=== PATIENT | female | born 1980 | race Caucasian/White ===

== ENCOUNTER 2017-11-08 13:52 | Emergency (ER) | END 2017-11-08 17:05 | disposition home or self-care (01) ==

== ENCOUNTER 2017-12-07 14:38 | Emergency (ER) | END 2017-12-07 17:15 | disposition home or self-care (01) ==

== ENCOUNTER 2018-06-12 11:29 | Emergency (ER) | payer MEDICAID ==
[~2018-06-12] VITALS: Ht 170.2 cm; Wt 111.4 kg
[~2018-06-12 11:29] MED LIST: CIPR500T4 PO; DIPH-232 PO; DOXY100T20 PO; HC30CR25 TOP; HYDR-4011 PO; LABE200T43 PO; LORA10CA PO; METO10TA92 PO; NIFE30TA66 PO
[2018-06-12 11:34] VITALS: Ht 170.2 cm; Wt 111.4 kg
[2018-06-12] MEDS ORDERED: LOSA100T8 PO ×2 (12:08→15:44)
--- NOTE | 2018-06-12 13:10 | ERD ---
ER Documentation Chief Complaint Chief Complaint dizziness x1hr, non complaint w/HTN HPI 38-year-old female history of hypertension but poorly compliant with medications presents the ED complaining of awakening this morning with dizziness. Patient reports turning her head after awakening and experiencing acute onset of dizziness with nausea but no vomiting. Denies headache, visual changes, focal weakness or numbness. No neck or back pain. Denies chest pain, palpitations or shortness of breath. No abdominal pain, dysuria, polyuria or flank pain. No leg pain or swelling. No fevers or chills. ROS All systems reviewed and are negative except as per history of present illness. Medications Home Meds Active Scripts Amlodipine Besylate* (Amlodipine Besylate*) 2.5 Mg Tablet, 5 MG PO DAILY, #30 TAB Prov:RUBEN SKY MD 06/12/18 Meclizine Hcl* (Antivert*) 12.5 Mg Tab, 25 MG PO Q8 PRN for DIZZINESS, #12 TAB Prov:RUBEN SKY MD 06/12/18 Losartan Potassium* (Losartan Potassium*) 100 Mg Tablet, 100 MG PO DAILY, #30 TAB Prov:RUBEN SKY MD 06/12/18 Reported Medications Losartan Potassium* (Losartan Potassium*) 100 Mg Tablet, 100 MG PO DAILY, TAB PATIENT STOP TAKING 4 MONTHS AGO, BUT ONLY TODAY SHE TAKE ONE PILL. 06/12/18 Discontinued Scripts Doxycycline Hyclate* (Doxycycline Hyclate*) 100 Mg Tablet.dr, 100 MG PO BID for 7 Days, TAB Prov:DINA ARITA PA-C 12/07/17 Hydrocortisone* Topical (Hydrocortisone* Topical) 2.5%-28.3 Gm Cream..g., 1 APPLIC TOP BID, #1 TUB Prov:DINA ARITA PA-C 12/07/17 Loratadine* (Claritin*) 10 Mg Capsule, 10 MG PO DAILY, #20 CAP Prov:DINA ARITA PA-C 12/07/17 Metoclopramide* (Reglan*) 10 Mg Tablet, 10 MG PO Q6 PRN for NAUSEA AND/OR VOMIT ING, #10 TAB Prov:TRICIA SKY 11/08/17 Hydrocodone/Acetaminophen ([place] 5-325 Tablet) 1 Each Tablet, 1 TAB PO Q6H PRN for PAIN, #20 TAB Prov:TRICIA SKY 11/08/17 Ciprofloxacin Hcl* (Ciprofloxacin Hcl*) 500 Mg Tablet, 500 MG PO BID for 7 Days, TAB Prov:CAMELIA VILLARREAL 05/25/14 Diphenoxylate Hcl-Atropine (Lomotil) 1 Tab Tablet, 1 TAB PO QID PRN for DIARRHEA, #30 TAB Prov:CAMELIA VILLARREAL 05/25/14 Nifedipine* (Procardia XL*) 30 Mg Tabsr, 30 MG PO BID, #60 2 Refills Prov:CAMELIA VILLARREAL 05/25/14 Labetalol Hcl* (Normodyne*) 200 Mg Tab, 200 MG PO BID, #60 TAB 2 Refills Prov:CAMELIA VILLARREAL 05/25/14 Allergies Allergies: Coded Allergies: ondansetron (Unverified Allergy, Intermediate, FACIAL RASHES, 06/12/18) RE-ENTERED UNCODED ALLERGY CODED PMhx/Soc History of Surgery: Yes (c section) Anesthesia Reaction: No Hx Neurological Disorder: No Hx Respiratory Disorders: No Hx Cardiac Disorders: Yes (high cholesterol) Hx Psychiatric Problems: No Hx Miscellaneous Medical Probl: No Hx Alcohol Use: No Hx Substance Use: No Hx Tobacco Use: No Smoking Status: Never smoker FmHx No sudden cardiac , stroke or subarachnoid hemorrhage Physical Exam Vitals Vital Signs Date Temp Pulse Resp B/P (MAP) Pulse Ox O2 O2 Flow FiO2 Time Delivery Rate 06/12/18 98.9 89 18 161/93 100 Room Air 16:18 (115) 06/12/18 78 18 158/95 100 Room Air 15:00 (116) 06/12/18 92 18 169/98 100 Room Air 12:47 (121) 06/12/18 99.9 109 22 206/97 98 11:34 (133) Physical Exam Const: No acute distress Head: Atraumatic Eyes: Normal Conjunctiva ENT: Normal External Ears, Nose and Mouth. Neck: Full range of motion. Carotids 2+ bilaterally without bruits. Resp: Clear to auscultation bilaterally Cardio: Regular rate and rhythm, no murmurs Abd: Soft, obese, non tender, non distended. Normal bowel sounds Skin: No petechiae or rashes Back: No midline or flank tenderness Ext: No cyanosis, or edema. No calf swelling or tenderness. Neur: Awake and alert Psych: Normal Mood and Affect Result Diagram: 06/12/18 1323 06/12/18 1323 Results 24 hrs Laboratory Tests Test 06/12/18 12:44 06/12/18 13:23 POC Beta HCG, Qualitative NEGATIVE White Blood Count 5.1 10^3/ul Red Blood Count 5.26 10^6/ul Hemoglobin 15.4 g/dl Hematocrit 45.1 % Mean Corpuscular Volume 85.7 fl Mean Corpuscular Hemoglobin 29.3 pg Mean Corpuscular Hemoglobin Concent 34.1 g/dl Red Cell Distribution Width 12.7 % Platelet Count 279 10^3/UL Mean Platelet Volume 9.9 fl Immature Granulocytes % 0.400 % Neutrophils % 76.4 % Lymphocytes % 15.4 % Monocytes % 6.8 % Eosinophils % 0.4 % Basophils % 0.6 % Nucleated Red Blood Cells % 0.0 /100WBC Immature Granulocytes # 0.020 10^3/ul Neutrophils # 3.9 10^3/ul Lymphocytes # 0.8 10^3/ul Monocytes # 0.4 10^3/ul Eosinophils # 0.0 10^3/ul Basophils # 0.0 10^3/ul Nucleated Red Blood Cells # 0.0 10^3/ul Sodium Level 141 mmol/L Potassium Level 3.8 mmol/L Chloride Level 108 mmol/L Carbon Dioxide Level 29 mmol/L Anion Gap 4 Blood Urea Nitrogen 10 mg/dl Creatinine 0.55 mg/dl Est Glomerular Filtrat Rate mL/min > 60 mL/min Glucose Level 122 mg/dl Calcium Level 9.5 mg/dl Troponin I < 0.012 ng/ml Current Medications Medications Dose Sig/Maliha Start Time Status Last (Trade) Ordered Route PRN Stop Time Admin Dose Reason Admin Meclizine 25 mg ONCE ONCE 06/12/18 DC 06/12/18 HCl PO 13:30 06/12/18 13:32 (Antivert) 13:31 Procedures/MDM DOCUMENTS REVIEWED: ED nurse, prior records LAB INTERPRETATION: CBC negative for anemia, leukocytosis or thrombocytopenia. Chemistry reveals no evidence of renal insufficiency, electrolyte abnormalities or hyperglycemia. EKG: Time: 1316. Sinus tachycardia. Ventricular rate 101. Normal ME and QRS. No acute ST segment elevation or depression. Normal axis. No ectopy. My Interpretation IMAGING: PROCEDURE: CT Head without contrast. CLINICAL INDICATION: Dizziness and hypertension TECHNIQUE: The study was performed utilizing a GE 64-slice multidetector CT scanner. Direct spiral axial CT images of the brain were obtained from the vertex to the skull base without contrast. Coronal and sagittal reformat images are provided. The CTDI vol is 39.1 mGy and the DLP is 634.23 mGy-cm. The images were reviewed on a PACS workstation. DICOM images are available. One or more of the following dose reduction techniques were used: Automated exposure control. Adjustment of the mA and/or kV according to patient size. Use of iterative reconstruction technique. COMPARISON: No prior studies are available for comparison. FINDINGS: The ventricles and cortical sulci are within normal limits. The dean-white matter differentiation is maintained. No intra or extra-axial fluid collection or mass effect or shift in the midline structures is seen. The visualized paranasal sinuses, mastoid air cells, orbits, and calvarium are unremarkable. IMPRESSION: No acute intracranial pathology. RPTAT: HPNM Physician Carmen Date Time Electronically viewed and signed by Physician Carmen on 06/12/2018 13:33 / REEXAMINATION/REEVALUATION: Time: 14:48. Improved. Dizziness almost completely resolved. MEDICAL DECISION MAKIN-year-old female history of hypertension but poorly compliant with medications presents the ED complaining of awakening this morning with dizziness. Poorly controlled hypertension without evidence of hypertensive urgency or emergency. CT of the brain to evaluate for hemorrhage, infarct, mass and hydrocephalus is unremarkable. Presentation consistent with peripheral vertigo likely benign positional vertigo although labyrinthitis or Mnire's disease are considered. Patient's neurologic symptoms have stabilized while they have been evaluated in the department and are appropriate for outpatient work up. No evidence of meningitis, intracranial bleed, seizure, stroke, or elevated intracranial pressure stable for discharge with precautionary instructions and outpatient follow-up as counseled. Though the patient's latest blood pressure was elevated (>120/80), the patient has a known history of hypertension and urged to pursue adjustment of their medical therapy within a week with their primary care physician. Please refer to the medication reconciliation form for the current list of hypertensive me dications. Counseled patient and family regarding diagnostic workup, diagnosis and need for followup. Understands to return to ED if symptoms recur, worsen or any other concerns. Departure Diagnosis: Primary Impression: Dizziness Additional Impressions: Peripheral vertigo Laterality: unspecified laterality Qualified Codes: H81.399 - Other peripheral vertigo, unspecified ear Poorly-controlled hypertension Noncompliance with medication regimen Condition: Stable (Improved) RUBEN SKY MD Jun 12, 2018 13:10
[2018-06-12] MEDS ORDERED: MECLIZINE 12.5 MG TAB PO ONE (13:30)
[2018-06-12] MEDS ORDERED: MECL12.574 PO (15:44)
[2018-06-12] MEDS ORDERED: AMLO2.5T78 PO (15:44)
[2018-06-12 16:18] VITALS: BP 161/93; PULSE 89; RESP 18
== END 2018-06-12 16:15 | disposition home or self-care (01) ==
LOC: E/R 11:29
DX: H81.399 Other peripheral vertigo, unspecified ear (principal); I10 Essential (primary) hypertension; Z91.14 Patient's other noncompliance with medication regimen
CPT/HCPCS: 70450; 80048; 81025; 84484; 85025; 93005; Z7502; Z7610